=== PATIENT | female | born 1985 | race Caucasian/White ===

== ENCOUNTER 2017-04-15 10:30 | Emergency (ER) | payer OTHER ==
[2017-04-15 10:35] VITALS: BMI 32.8
[2017-04-15] MEDS ORDERED: SODIUM CHLORIDE 1,000 ML IV STA (10:56)
[2017-04-15] MEDS ORDERED: ONDANSETRON 4 MG/2 ML VIAL IVPUSH ONE (10:56)
--- NOTE | 2017-04-15 10:59 | PDOC ---
History of Present Illness - General History Source: Patient Exam Limitations: No Limitations - History of Present Illness Initial Comments: 04/15/17 11:17 The patient is a 31-year-old woman with no past medical history who presents to the emergency department for further evaluation of abdominal pain since last night. She states that she has been experiencing loose watery stools for the past month. No fever, chills, new foods, recent travel. She states that last night she experienced exquisite intermittent sharp mid-epigastric non-radiating pain with associated nausea and lightheadedness. No vomiting. She does not report any exacerbating and alleviating factors. She also notes that she has had dysuria for the past 5 days. She reports experiencing similar symptoms in the past for which she was evaluated at [facility] and she was informed that her symptoms were related to a bacteria in her stomach. She denies diaphoresis, generalized weakness. She denies chest pain, shortness of breath, cough She denies vomiting, diarrhea,hematuria, urinary frequency and urgency, flank pain, vaginal discharge/vaginal bleeding Allergies:No Known Drug Allergies. Past Surgical History: Cholecystectomy Social History: No tobacco. Occasional EtOH use. No recreational drug use. <Portia Doyle - Last Filed: 04/15/17 11:20> - General History Source: Patient, Old Records Exam Limitations: No Limitations <Gracia Sutherland - Last Filed: 04/15/17 13:41> - General Chief Complaint: Pain Stated Complaint: ABD PAIN Time Seen by Provider: 04/15/17 10:43 Past History <Portia Doyle - Last Filed: 04/15/17 11:20> - Past Medical History Other medical history: NONE - Surgical History Cholecystectomy: Yes - Psycho/Social/Smoking Cessation Hx Anxiety: No Suicidal Ideation: No Smoking History: Never smoked Have you smoked in the past 12 months: No Information on smoking cessation initiated: No Hx Alcohol Use: No Drug/Substance Use Hx: No Substance Use Type: None <Gracia Sutherland - Last Filed: 04/15/17 13:41> - Past Medical History Allergies/Adverse Reactions: Allergies Allergy/AdvReac Type Severity Reaction Status Date / Time No Known Allergies Allergy Verified 04/15/17 10:32 Home Medications: Ambulatory Orders NK [No Known Home Medication] 04/15/17 Review of Systems - Review of Systems Able to Perform ROS?: Yes Comments:: 04/15/17 11:17 GENERAL/CONSTITUTIONAL: No fever or chills. No weakness. HEAD, EYES, EARS, NOSE AND THROAT: No change in vision. No ear pain or discharge. No sore throat. CARDIOVASCULAR: No chest pain or shortness of breath. RESPIRATORY: No cough, wheezing, or hemoptysis. GASTROINTESTINAL: Yes: Abdominal Pain. Nausea. Diarrhea. No vomiting or constipation. GENITOURINARY: Yes: Dysuria. No frequency, or change in urination. MUSCULOSKELETAL: No joint or muscle swelling or pain. No neck or back pain. SKIN: No rash NEUROLOGIC: No headache, vertigo, loss of consciousness, or change in strength/ sensation. ENDOCRINE: No increased thirst. No abnormal weight change. HEMATOLOGIC/LYMPHATIC: No anemia, easy bleeding, or history of blood clots. ALLERGIC/IMMUNOLOGIC: No hives or skin allergy. <Portia Doyle - Last Filed: 04/15/17 11:20> *Physical Exam - Vital Signs Last Vital Signs Temp Pulse Resp BP Pulse Ox 98.2 F 90 18 130/73 100 04/15/17 10:32 04/15/17 10:32 04/15/17 10:32 04/15/17 10:32 04/15/17 10:32 - Physical Exam Comments: 04/15/17 11:18 GENERAL: Awake, alert, and fully oriented, in no acute distress HEAD: No signs of trauma EYES: PERRLA, EOMI, sclera anicteric, conjunctiva clear ENT: Auricles normal inspection, hearing grossly normal, nares patent, oropharynx clear without exudates. Moist mucosa NECK: Normal ROM, supple, no lymphadenopathy, JVD, or masses LUNGS: Breath sounds equal, clear to auscultation bilaterally. No wheezes, and no crackles HEART: Regular rate and rhythm, normal S1 and S2, no murmurs, rubs or gallops ABDOMEN: Soft, there is some right/left upper quadrant and epigatsric tenderness without guarding or rebound. Normoactive bowel sounds. No masses EXTREMITIES: Normal range of motion, no edema. No clubbing or cyanosis. No cords, erythema, or tenderness NEUROLOGICAL: Cranial nerves II through XII grossly intact. Normal speech, normal gait <Portia Doyle - Last Filed: 04/15/17 11:20> - Vital Signs Last Vital Signs Temp Pulse Resp BP Pulse Ox 98.2 F 90 18 130/73 100 04/15/17 10:32 04/15/17 10:32 04/15/17 10:32 04/15/17 10:32 04/15/17 10:32 <Gracia Sutherland - Last Filed: 04/15/17 13:41> ED Treatment Course - Medications Given in the ED: ED Medications Discontinued Medications Generic Name Dose Route Start Last Admin Trade Name Seymour PRN Reason Stop Dose Admin Ondansetron HCl 4 mg 04/15/17 10:56 04/15/17 11:04 Zofran Injection IVPUSH 04/15/17 10:57 4 mg ONCE ONE Administration <Portia Doyle - Last Filed: 04/15/17 11:20> - LABORATORY CBC & Chemistry Diagram: 04/15/17 11:25 04/15/17 11:25 <Gracia Sutherland - Last Filed: 04/15/17 13:41> Medical Decision Making - Medical Decision Making 04/15/17 10:57 31-year-old female with no significant past medical history presents to the emergency Department with complaints of upper abdominal pain and nausea as well as hot flashes prior to arrival to the ED as well as soft bowel movements times one month; there was no vomiting. She also has dysuria 5 days. Differential diagnosis includes but is not limited to: Gastritis, pancreatitis, gastroenteritis, colitis, electrolyte abnormality, dehydration, toxic/metabolic derangement, atypical presentation of ACS, UTI. Plan: 1. Labs 2. IV fluids for hydration 3. Antiemetics 4. EKG 5. Urine analysis 6. Observe and reevaluate 04/15/17 13:39 Addendum: Labs were reviewed and are noted in the EMR. The white count was mildly elevated. The patient is feeling improved after IV fluids and Zofran. She tolerated by mouth without nausea or vomiting. The plan is to discharge the patient home, follow up with primary care physician within one week and return to the emergency department if her symptoms persist, worsen, or new symptoms arise. <Gracia Sutherland - Last Filed: 04/15/17 13:41> *DC/Admit/Observation/Transfer - Attestations Scribe Attestion: 04/15/17 11:19 Documentation prepared by Portia Doyle, acting as medical front desk specialist for Gracia Sutherland MD. <Portia Doyle - Last Filed: 04/15/17 11:20> - Discharge Dispostion Admit: No - Attestations Physician Attestion: 04/15/17 10:58 I, Dr. Gracia Sutherland, attest that the scribes documentation that appears above has been prepared under my direction and personally reviewed by me in its entirety. I confirmed that the note above accurately reflects all work, treatment, procedures, and medical decision-making performed by me. <Gracia Sutherland - Last Filed: 04/15/17 13:41> Diagnosis at time of Disposition: Abdominal pain, Nausea - Discharge Dispostion Disposition: HOME Condition at time of disposition: Stable - Patient Instructions Printed Discharge Instructions: DI for Abdominal Pain-Adult Additional Instructions: Please follow-up with your primary care physician within one week and return to the emergency department if your symptoms persist, worsen, or new symptoms arise.
[2017-04-15] MEDS ORDERED: ONDANSETRON 4 MG/2 ML VIAL ONE (11:02)
[2017-04-15 12:00] LABS: URINE APPEARANCE CLEAR; URINE BILIRUBIN NEGATIVE (NEGATIVE); URINE COLOR YELLOW; URINE GLUCOSE (UA) NEGATIVE (NEGATIVE); URINE KETONE NEGATIVE (NEGATIVE); URINE LEUK ESTERASE NEGATIVE (NEGATIVE); URINE NITRITE NEGATIVE (NEGATIVE); URINE PROTEIN NEGATIVE (NEGATIVE); URINE UROBILINOGEN NEGATIVE E.U./dl (0.2-1.0)
[2017-04-15 12:02] LABS: BASOPHIL 0.3 % (0-2.0); EOSINOPHIL 0.5 % (0-4.5); MCH 28.6 pg (25.7-33.7); MCHC 33.8 g/dl (32.0-36.0); MEAN CELL VOLUME 84.4 fl (80-96); MEAN PLT VOLUME 8.4 fl (7.5-11.1); NEUTROPHILS 88.1 % (42.8-82.8); PLATELET COUNT 246 K/MM3 (134-434); RDW 14.1 % (11.6-15.6); WHITE BLOOD COUNT 10.8 K/mm3 (4.0-10.0)
[2017-04-15 12:03] LABS: URINE BLOOD 1+ (NEGATIVE)
[2017-04-15 12:06] LABS: URINE MUCUS FEW; URINE RBC 3 /hpf (0-3); URINE WBC 2 /hpf (3-5)
[2017-04-15 12:29] LABS: ALBUMIN 3.8 g/dl (3.4-5.0); ANION GAP 10 (8-16); CALCIUM 8.8 mg/dL (8.5-10.1); CO2 25 mmol/L (21-32); CREATININE 0.6 mg/dL (0.55-1.02); GLUCOSE,RANDOM 108 mg/dL (74-106); MAGNESIUM 1.8 mg/dL (1.8-2.4); PHOSPHOROUS 2.6 mg/dL (2.5-4.9); SGOT/AST 22 U/L (15-37); SGPT/ALT 31 U/L (12-78)
[2017-04-15 12:30] LABS: ALK PHOS 101 U/L (45-117); BILIRUBIN,TOTAL 0.9 mg/dL (0.2-1.0); TOT PROT 7.2 g/dl (6.4-8.2); TROPONIN I < 0.02 ng/ml (0.00-0.05)
[2017-04-15 14:10] VITALS: BP 110/76; PULSE 96; TEMP 98.3
--- NOTE | 2017-04-15 16:13 | EKG ---
Test Reason : Blood Pressure : / mmHG Vent. Rate : 097 BPM Atrial Rate : 097 BPM P-R Int : 178 ms QRS Dur : 078 ms QT Int : 348 ms P-R-T Axes : 053 050 033 degrees QTc Int : 441 ms NORMAL SINUS RHYTHM NORMAL ECG NO PREVIOUS ECGS AVAILABLE Confirmed by GLENDY THORNTON MD ([id number]) on 04/15/2017 4:12:50 PM Referred By: Confirmed By:GLENDY THORNTON MD
== END 2017-04-15 14:08 | disposition home or self-care (01) ==
LOC: JER 10:30
PROC: 3E033GC Introduction of Other Therapeutic Substance into Peripheral Vein, Percutaneous Approach (ICD-10-PCS; principal; 2017-04-15)
DX: R10.13 Epigastric pain (principal); R11.0 Nausea
CPT/HCPCS: 36415; 80053; 81003; 81015; 82550; 83690; 83735; 84100; 84484; 84703; 85025; 93005; 93010; 99283-25